=== PATIENT | male | born 1995 | race Caucasian/White ===

== ENCOUNTER 2019-01-26 21:22 | Observation (INO) | payer BC ==
[2019-01-26] MEDS ORDERED: NS 1,000 ML IV ONE ×2 (21:53)
[2019-01-27] MEDS ORDERED: ACETAMINOPHEN 500 MG TAB PO ONE (02:03)
[2019-01-27] MEDS ORDERED: IBUPROFEN 800 MG TAB PO ONE (02:03)
[2019-01-27] MEDS ORDERED: NS 1,000 ML IV ONE (02:55)
[2019-01-27] MEDS ORDERED: ONDANSETRON DISINTEGRATING 4 MG TAB PO PRN (03:58)
[2019-01-27] MEDS ORDERED: ONDANSETRON 4 MG/2 ML VIAL IVP PRN (03:58)
[2019-01-27] MEDS ORDERED: ACETAMINOPHEN 325 MG TAB PO PRN (03:58)
[2019-01-27] MEDS ORDERED: IBUPROFEN 600 MG TAB PO PRN (03:58)
[2019-01-27] MEDS ORDERED: NS 1,000 ML IV SCH (04:00)
[2019-01-27] MEDS ORDERED: valACYclovir 500 MG TAB PO SCH (09:30)
[2019-01-27] MEDS ORDERED: AZITHROMYCIN 250 MG TAB PO ONE (15:12)
== END 2019-01-27 18:28 | disposition home or self-care (01) ==
DX: A74.9 Chlamydial infection, unspecified (principal); R50.9 Fever, unspecified; Z85.89 Personal history of malignant neoplasm of other organs and systems
CPT/HCPCS: 71046; 96361; 96365; 99285; G0378